=== PATIENT | male | born 1935 | race African-American/Black ===

== ENCOUNTER 2020-01-20 13:12 | Emergency (ER) | payer OTHER ==
[~2020-01-20] VITALS: Ht 175.3 cm; Wt 65.8 kg
--- NOTE | 2020-01-20 13:23 | Emergency Room Report ---
History of Present Illness General Chief Complaint: Upper Respiratory Illness Present Illness HPI Disclaimer: Please note that this report is being documented using DRAGON technology. This can lead to erroneous entry secondary to incorrect interpretation by the dictating instrument. HPI: 84-year-old male with a history of dementia, atrial fibrillation status post pacemaker presents from SNF for admission of newly diagnosed pneumonia and pleural effusion. According to patient's son, chest x-ray performed several days ago found today to have right lower lobe infiltrate concerning for pneumonia. Patient has been on oral erythromycin. Denies fevers, chills. He states he will have intermittent chest congestion and cough with mild shortness of breath. Denies fever, chills, vomiting, diarrhea, rash. PMH: Dementia, atrial fibrillation, vitamin deficiencies, ROCKY, PSH: Pacemaker placement Allergies: Cefazolin Social Hx: Reviewed (Jamal Walker MD) Allergies: Coded Allergies: CEFAZOLIN (Verified Allergy, Unknown, 01/20/20) COVID-19 Screening Contact w/high risk pt: No Recent Travel to affected area: No Experienced COVID-19 symptoms?: Yes COVID-19 symptoms experienced: Shortness of Breath COVID-19 Testing performed AIRPORT GUIDE: Yes COVID-19 Screening: Negative COVID-19 COVID-19 Testing Source: SPEED [employer]NER (Jamal Walker MD) Review of Systems All Other Systems: negative except mentioned in HPI (Jamal Walker MD) Physical Exam Vital Signs Date Time Temp Pulse Resp B/P (MAP) Pulse Ox O2 Delivery O2 Flow Rate FiO2 01/20/20 13:14 97.2 72 20 141/72 (95) 96 Room Air General: Awake and alert, no acute distress HEENT: NC/AT. EOMI. Neck: Supple, trachea midline Chest Wall: No tenderness, no deformity. Pacemaker palpable in left chest wall Cardiovascular: RRR. S1 and S2 normal. No murmur appreciated Resp: Normal work of breathing. Intermittent cough. Abdomen: Abdomen is soft, nondistended. Nontender Skin: Intact. No abrasions, laceration or rash over the exposed skin MSK: Normal tone and bulk. Moving all extremities. No obvious deformity. No lower extremity edema Neuro: Awake and alert. Mentating appropriately. (Jamal Walker MD) Medical Decision Making Diagnostic Impression: Primary Impression: Pleural effusion Additional Impression: Renal insufficiency ER Course This is an 84-year-old male brought in from nursing facility for evaluation of newly identified infiltrate and effusion on chest x-ray several days ago. Patient tested negative for COVID-19 4 days ago. He is afebrile, no respiratory distress on arrival. Will obtain labs and CT imaging of the chest to further evaluate the infiltrate and effusion. He may require admission based on CT and lab findings. Patient be signed out to oncoming provider pending labs, imaging and final disposition. (Jamal Walker MD) ER Course Hospital Course 84-year-old male presents with possible pleural effusion on chest x-ray Patient initially seen and evaluated by Dr walker; please see his note for full history and physical Clinical course Labs -leukopenia noted, hemoglobin/hematocrit stable, BUN/Cr elevated, trop negative, lactic ok CT Chest - large R pleural effusion, possible empyema Broad-spectrum antibiotics given. Discussed with [facility]. Last CT chest was in July and it does appear bigger at this time. Because of insurance patient will be transferred to [facility] I feel this is a highly complex case requiring extensive working including EKG/ Rhythm strip, Xray/CT/US, Blood/urine lab work, repeat exams while in ED, and administration of strong opiates/narcotics for pain control, admission to hospital or close patient follow up. Diagnosis - pleural effusion, renal insufficiency transferred in serious condition Labs Test 01/20/20 13:45 White Blood Count 4.7 K/UL (4.8-10.8) Red Blood Count 3.26 M/UL (4.70-6.10) Hemoglobin 9.9 G/DL (14.2-18.0) Hematocrit 31.4 % (42.0-52.0) Mean Corpuscular Volume 96 FL (80-99) Mean Corpuscular Hemoglobin 30.2 PG (27.0-31.0) Mean Corpuscular Hemoglobin Concent 31.4 G/DL (32.0-36.0) Red Cell Distribution Width 12.9 % (11.6-14.8) Platelet Count 289 K/UL (150-450) Mean Platelet Volume 6.3 FL (6.5-10.1) Neutrophils (%) (Auto) 62.3 % (45.0-75.0) Lymphocytes (%) (Auto) 22.5 % (20.0-45.0) Monocytes (%) (Auto) 13.0 % (1.0-10.0) Eosinophils (%) (Auto) 1.2 % (0.0-3.0) Basophils (%) (Auto) 1.1 % (0.0-2.0) Prothrombin Time 11.5 SEC (9.30-11.50) Prothromb Time International Ratio 1.0 (0.9-1.1) Activated Partial Thromboplast Time 31 SEC (23-33) Urine Color Pale yellow Urine Appearance Clear Urine pH 5 (4.5-8.0) Urine Specific [place] 1.020 (1.005-1.035) Urine Protein 2+ (NEGATIVE) Urine Glucose (UA) Negative (NEGATIVE) Urine Ketones Negative (NEGATIVE) Urine Blood Negative (NEGATIVE) Urine Nitrite Negative (NEGATIVE) Urine Bilirubin Negative (NEGATIVE) Urine Urobilinogen Normal MG/DL (0.0-1.0) Urine Leukocyte Esterase Negative (NEGATIVE) Urine RBC 0 /HPF (0 - 0) Urine WBC 0-2 /HPF (0 - 0) Urine Squamous Epithelial Cells Occasional /LPF Urine Bacteria Occasional /HPF (NONE) Urine Hyaline Casts 0-2 /LPF (NONE) Urine Fine Granular Casts 0-2 /LPF (NONE) Urine Mucus Occasional /LPF Sodium Level 138 MMOL/L (136-145) Potassium Level 4.4 MMOL/L (3.5-5.1) Chloride Level 99 MMOL/L (98-107) Carbon Dioxide Level 31 MMOL/L (21-32) Anion Gap 8 mmol/L (5-15) Blood Urea Nitrogen 30 mg/dL (7-18) Creatinine 1.6 MG/DL (0.55-1.30) Estimat Glomerular Filtration Rate 49.9 mL/min (>60) Glucose Level 114 MG/DL (74-106) Lactic Acid Level 1.40 mmol/L (0.4-2.0) Calcium Level 8.6 MG/DL (8.5-10.1) Phosphorus Level 4.4 MG/DL (2.5-4.9) Magnesium Level 1.9 MG/DL (1.8-2.4) Total Bilirubin 0.3 MG/DL (0.2-1.0) Aspartate Amino Transf (AST/SGOT) 21 U/L (15-37) Alanine Aminotransferase (ALT/SGPT) 15 U/L (12-78) Alkaline Phosphatase 89 U/L (46-116) Total Creatine Kinase 65 U/L (26-308) Creatine Kinase MB 1.5 NG/ML (0.0-3.6) Creatine Kinase MB Relative Index 2.3 Troponin I 0.000 ng/mL (0.000-0.056) Pro-B-Type Natriuretic Peptide 879 pg/mL (0-125) Total Protein 7.4 G/DL (6.4-8.2) Albumin 2.8 G/DL (3.4-5.0) Globulin 4.6 g/dL Albumin/Globulin Ratio 0.6 (1.0-2.7) (Jairon Garcia MD) EKG Diagnostic Results EKG Time: 14:40 Rate: normal Rhythm: other - Ventricularly paced, occasional PVC Other Impression Patient has both wide and narrow QRS complex consistent with either ventricular paced rhythm or PVCs. (Jamal Walker MD) Rhythm Strip Diag. Results Rhythm Strip Time: 14:40 EP Interpretation: yes Rate: 60s Rhythm: other - Wide-complex either PVCs versus ventricular trace (Jamal Walker MD) CT/MRI/US Diagnostic Results CT/MRI/US Diagnostic Results : Imaging Test Ordered: CT Chest Impression Procedure: CT Chest no Contrast Indication: Chest pain, shortness of breath Technique: Noncontrast CT of the chest utilizing automated exposure control. Axial, sagittal and coronal reformats presented. CT dose: Total DLP 369.6 mGycm; CTDI vol 9 mGy Comparison: None Findings: Please note that evaluation of the mediastinum and vascular structures is limited without the use of intravenous contrast. Within these limitations the following observations are made: There is a dense consolidation in the right lower lobe. Additional consolidation noted within the anterior aspect of the right middle lobe. There is a moderate- sized pleural effusion on the right which demonstrates a somewhat lobular contour suggesting loculation, particularly there is a locule in the inferior posterior pleural the right lower lung which measures approximately 8.3 x 5.7 cm. Air is noted within this loculation compatible with hydropneumothorax. This may be related to a bronchopleural fistula. The pleura appears thickened somewhat nodular, particularly particular along the periphery of the right lung. There is a 5 mm nodule in the left lung apex (axial image #9). There is minimal atelectasis in the left lower lobe. There is no pleural effusion or pneumothorax on the left. Heart is normal in size. A radiodense structure is noted within the right ventricle which may represent a wireless pacemaker (micra device). No pericardial effusion identified. There are mild coronary arterial calcifications. There is a small hiatal hernia. Bones are demineralized. There is scoliosis and multilevel degenerative changes of the spine. There are flowing anterior osteophytes. Generative changes also noted in the shoulders. IMPRESSION: Limited exam without intravenous contrast. Within these limitations: * Dense consolidation in the right lower lobe which may be related to pneumonia. Follow-up recommended as underlying mass/malignancy not excluded. * Loculated moderate right pleural effusion with thick rind which may suggest empyema. Correlation with clinical findings recommended. 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 * 5 mm nodule in the left lung apex. * Likely implantable/wireless pacemaker device. Correlation with history recommended. * Coronary arterial calcifications. The CT scanner at [facility] is accredited by the [employer] and the scans are performed using protocols designed to limit radiation exposure to as low as reasonably achievable to attain images of sufficient resolution adequate for diagnostic evaluation. (Jairon Garcia MD) Last Vital Signs Date Time Temp Pulse Resp B/P (MAP) Pulse Ox O2 Delivery O2 Flow Rate FiO2 01/20/20 13:14 97.2 72 20 141/72 (95) 96 Room Air (Jamal Walker MD) Status: improved (Jairon Garcia MD) Disposition: SHORT-TERM HOSP Condition: Serious Jamal Walker MD Jan 20, 2020 13:23 Jairon Garcia MD Jan 20, 2020 16:59
[2020-01-20 13:30] VITALS: BP 137/70
[2020-01-20] MEDS ORDERED: ZITHROMAX250 MG ORAL (13:36)
[2020-01-20] MEDS ORDERED: NORVASC10 MG ORAL (13:36)
[2020-01-20] MEDS ORDERED: BUMEX1 MG ORAL (13:36)
[2020-01-20] MEDS ORDERED: DOCUSATE SODIU100 M2 ORAL (13:43)
[2020-01-20] MEDS ORDERED: [UNRECOGNIZED DRUG - OTHER] MC (13:43)
[2020-01-20] MEDS ORDERED: MULTIVITAMINS1 EAC8 ORAL (13:43)
[2020-01-20] MEDS ORDERED: FERROUS SULFAT325 M2 ORAL (13:43)
[2020-01-20] MEDS ORDERED: ACETAMINOPHEN325 M1 ORAL (13:43)
[2020-01-20] MEDS ORDERED: DONEPEZIL HCL10 M2 ORAL (13:43)
[2020-01-20] MEDS ORDERED: LIQUITUSS200 MG/5 M PO (13:43)
--- NOTE | 2020-01-20 14:10 | Diagnostic Imaging Report ---
Indication: Shortness of breath Technique: XRAY Chest 1v Comparison: None Findings: Heart is enlarged. Mediastinal contours appear sharp. There is asymmetric patchy opacities in the right lower lung with a small right pleural effusion. No evidence of pneumothorax. There are degenerative changes in the spine and shoulders. There is scoliosis. No acute osseous abnormalities appreciated radiographically. IMPRESSION: Asymmetric patchy opacities in the right mid and lower lung with small right pleural effusion. Pneumonia not excluded. Clinical correlation and radiographic follow-up recommended. 3 nurisly.
[2020-01-20 14:21] LABS: BASOPHILS % (AUTO) 1.1 % (0.0-2.0); EOSINOPHILS % (AUTO) 1.2 % (0.0-3.0); HEMATOCRIT 31.4 % (42.0-52.0); HEMOGLOBIN 9.9 G/DL (14.2-18.0); LYMPHOCYTES % (AUTO) 22.5 % (20.0-45.0); MEAN CORPUSCULAR VOLUME 96 FL (80-99); NEUTROPHILS % (AUTO) 62.3 % (45.0-75.0); PLATELET COUNT 289 K/UL (150-450); RED BLOOD COUNT 3.26 M/UL (4.70-6.10); RED CELL DISTRIBUTION WIDTH 12.9 % (11.6-14.8); WHITE BLOOD COUNT 4.7 K/UL (4.8-10.8)
[2020-01-20 14:26] LABS: APPEARANCE,URINE CLEAR; BILIRUBIN, URINE NEGATIVE (NEGATIVE); COLOR,URINE PALE YELLOW; GLUCOSE, URINE (UA) NEGATIVE (NEGATIVE); KETONES,URINE NEGATIVE (NEGATIVE); LEUKOCYTE ESTERASE ,URINE NEGATIVE (NEGATIVE); NITRITE,URINE NEGATIVE (NEGATIVE); PH,URINE 5 (4.5-8.0); PROTEIN,URINE 2+ (NEGATIVE); UROBILINOGEN,URINE NORMAL MG/DL (0.0-1.0)
[2020-01-20 14:29] LABS: ANION GAP 8 mmol/L (5-15); BLOOD UREA NITROGEN 30 mg/dL (7-18); CALCIUM 8.6 MG/DL (8.5-10.1); CARBON DIOXIDE 31 MMOL/L (21-32); CHLORIDE 99 MMOL/L (98-107); CREATININE 1.6 MG/DL (0.55-1.30); POTASSIUM 4.4 MMOL/L (3.5-5.1); SODIUM 138 MMOL/L (136-145)
[2020-01-20 14:42] LABS: ALANINE AMINOTRANSFERASE 15 U/L (12-78); ALBUMIN 2.8 G/DL (3.4-5.0); ALBUMIN/GLOBULIN RATIO 0.6 (1.0-2.7); ALKALINE PHOSPHATASE 89 U/L (46-116); ASPARTATE AMINO TRANSFERASE 21 U/L (15-37); BILIRUBIN,TOTAL 0.3 MG/DL (0.2-1.0); CKMB 1.5 NG/ML (0.0-3.6); CREATINE KINASE 65 U/L (26-308); PHOSPHORUS 4.4 MG/DL (2.5-4.9)
--- NOTE | 2020-01-20 15:21 | Diagnostic Imaging Report ---
Indication: Chest pain, shortness of breath Technique: Noncontrast CT of the chest utilizing automated exposure control. Axial, sagittal and coronal reformats presented. CT dose: Total DLP 369.6 mGycm; CTDI vol 9 mGy Comparison: None Findings: Please note that evaluation of the mediastinum and vascular structures is limited without the use of intravenous contrast. Within these limitations the following observations are made: There is a dense consolidation in the right lower lobe. Additional consolidation noted within the anterior aspect of the right middle lobe. There is a moderate-sized pleural effusion on the right which demonstrates a somewhat lobular contour suggesting loculation, particularly there is a locule in the inferior posterior pleural the right lower lung which measures approximately 8.3 x 5.7 cm. Air is noted within this loculation compatible with hydropneumothorax. This may be related to a bronchopleural fistula. The pleura appears thickened somewhat nodular, particularly particular along the periphery of the right lung. There is a 5 mm nodule in the left lung apex (axial image #9). There is minimal atelectasis in the left lower lobe. There is no pleural effusion or pneumothorax on the left. Heart is normal in size. A radiodense structure is noted within the right ventricle which may represent a wireless pacemaker (micra device). No pericardial effusion identified. There are mild coronary arterial calcifications. There is a small hiatal hernia. Bones are demineralized. There is scoliosis and multilevel degenerative changes of the spine. There are flowing anterior osteophytes. Generative changes also noted in the shoulders. IMPRESSION: Limited exam without intravenous contrast. Within these limitations: * Dense consolidation in the right lower lobe which may be related to pneumonia. Follow-up recommended as underlying mass/malignancy not excluded. * Loculated moderate right pleural effusion with thick rind which may suggest empyema. Correlation with clinical findings recommended. 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 * 5 mm nodule in the left lung apex. * Likely implantable/wireless pacemaker device. Correlation with history recommended. * Coronary arterial calcifications. The CT scanner at [facility] is accredited by the [employer] and the scans are performed using protocols designed to limit radiation exposure to as low as reasonably achievable to attain images of sufficient resolution adequate for diagnostic evaluation.
[2020-01-20 15:32] VITALS: BP 147/90
[2020-01-20] MEDS ORDERED: Vancomycin 1 GM in NS 275 ML IVPB ONE (15:45)
[2020-01-20 17:32] VITALS: BP 138/86
[2020-01-20 17:36] VITALS: BP 138/86
== END 2020-01-20 17:36 | disposition short-term general hospital (02) ==
LOC: EDBD 13:12 → EMR 13:43
DX: J90 Pleural effusion, not elsewhere classified (principal); N28.9 Disorder of kidney and ureter, unspecified; D72.819 Decreased white blood cell count, unspecified; Z95.0 Presence of cardiac pacemaker; F03.90 Unspecified dementia, unspecified severity, without behavioral disturbance, psychotic disturbance, mood disturbance, and anxiety; Z88.8 Allergy status to other drugs, medicaments and biological substances; R06.02 Shortness of breath; R91.1 Solitary pulmonary nodule
CPT/HCPCS: 36415; 71045; 71250; 80053; 81003; 82550; 82553; 83605; 83735; 83880; 84100; 84484; 85025; 85610; 85730; 87040; 87081; 93005; 96365; 99285; J3370; J7050; J7030